=== PATIENT | female | born 1995 | race Caucasian/White ===

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

== ENCOUNTER 2020-06-08 11:32 | Emergency (ER) | payer OTHER ==
[~2020-06-08 11:32] MED LIST: HYDROCODON-ACE1 EAC4 PO; KETOROLAC TROME10 MG PO; REGLAN10 MG PO; ZOFRAN8 MG PO
[2020-06-08 12:21] LABS: BILIRUBIN NEGATIVE (NEGATIVE); BLOOD 2+ Ery/uL (NEGATIVE); COLOR YELLOW (YELLOW); GLUCOSE (U) NORMAL (NORMAL); LEUKOCYTES NEGATIVE Leu/uL (NEGATIVE); NITRITE NEGATIVE (NEGATIVE); PROTEIN NEGATIVE (NEGATIVE); SPECIFIC GRAVITY 1.025 (1.001-1.030); UROBILINOGEN 0.2 mg/dL (0.2-1.0); pH 7.5 (5.0-9.0)
[2020-06-08 12:30] LABS: BASOPHIL 0.5 % (0-2); EOSINOPHIL 2.6 % (0-5); HCT 39.4 % (37.0-47.0); HGB 12.9 g/dl (12.5-16.0); LYMPHOCYTE 28.3 % (15-48); MCH 29.6 pg (25.0-31.0); MCHC 32.7 g/dL (32.0-36.0); MCV 90.4 fL (78.0-100.0); MONOCYTE 5.9 % (0-12); MPV 8.2 fL (6.0-9.5); NEUTROPHIL 61.5 % (41-80); NRBC 0; PLT 352 K/uL (150-400); RBC 4.36 M/uL (4.20-5.40); RDW 14.1 % (11.5-14.0); WBC 8.4 K/uL (4.0-10.5)
[2020-06-08 12:31] LABS: CLARITY HAZY (CLEAR)
[2020-06-08 12:32] LABS: SQUAMOUS EPITHELIAL CELLS 20-50
[2020-06-08 12:33] LABS: BACTERIA 1+; URINARY RBC RARE
[2020-06-08 12:57] LABS: ALBUMIN 3.4 g/dL (3.4-5.0); BILIRUBIN - TOTAL 0.3 mg/dL (0.2-1.0); BUN/CREAT RATIO (CALC) 15.5 RATIO; CREATININE 0.71 mg/dL (0.51-0.95); GLOBULIN (CALCULATION) 3.8 g/dL; TOTAL PROTEIN 7.2 g/dL (6.4-8.2)
[2020-06-08] MEDS ORDERED: NAPROXEN500 MG PO (15:14)
[2020-06-08] MEDS ORDERED: NORCO 5-325 TA1 EACH PO (15:14)
== END 2020-06-08 15:27 | disposition home or self-care (01) ==
LOC: FER 11:32
PROVIDERS: Emergency Medicine
DX: N83.292 Other ovarian cyst, left side (principal)
CPT/HCPCS: 36415; 76830; 80053; 81001; 84702; 85025; 86850; 86900; 86901

== ENCOUNTER 2020-08-21 12:58 | Emergency (ER) | payer OTHER ==
[~2020-08-21 12:58] MED LIST changes: +NAPROXEN500 MG PO; +NORCO 5-325 TA1 EACH PO
[2020-08-21 13:32] LABS: BILIRUBIN NEGATIVE (NEGATIVE); BLOOD 1+ Ery/uL (NEGATIVE); CLARITY CLEAR (CLEAR); COLOR YELLOW (YELLOW); GLUCOSE (U) NORMAL (NORMAL); LEUKOCYTES NEGATIVE Leu/uL (NEGATIVE); NITRITE NEGATIVE (NEGATIVE); PROTEIN NEGATIVE (NEGATIVE); SPECIFIC GRAVITY >=1.030 (1.001-1.030); UROBILINOGEN 0.2 mg/dL (0.2-1.0); pH 5.5 (5.0-9.0)
[2020-08-21 13:44] LABS: BACTERIA TRACE; URINARY RBC RARE
[2020-08-21 13:56] LABS: BASOPHIL 0.4 % (0-2); EOSINOPHIL 1.4 % (0-5); HCT 42.6 % (37.0-47.0); HGB 14.2 g/dl (12.5-16.0); LYMPHOCYTE 13.6 % (15-48); MCHC 33.3 g/dL (32.0-36.0); MCV 89.9 fL (78.0-100.0); MONOCYTE 7.7 % (0-12); MPV 8.6 fL (6.0-9.5); NEUTROPHIL 76.4 % (41-80); NRBC 0; PLT 340 K/uL (150-400); RBC 4.74 M/uL (4.20-5.40); RDW 13.6 % (11.5-14.0); WBC 7.3 K/uL (4.0-10.5)
[2020-08-21 14:03] LABS: ALBUMIN 3.6 g/dL (3.4-5.0); BILIRUBIN - TOTAL 0.6 mg/dL (0.2-1.0); BUN/CREAT RATIO (CALC) 20.7 RATIO; CREATININE 0.82 mg/dL (0.51-0.95); GLOBULIN (CALCULATION) 4.5 g/dL; POTASSIUM 4.1 mmol/L (3.5-5.1); TOTAL PROTEIN 8.1 g/dL (6.4-8.2)
[2020-08-21] MEDS ORDERED: ZOFRAN4 M1 PO (15:22)
== END 2020-08-21 15:40 | disposition home or self-care (01) ==
LOC: FER 12:58
PROVIDERS: Emergency Medicine
DX: R19.7 Diarrhea, unspecified (principal); G43.909 Migraine, unspecified, not intractable, without status migrainosus; Z79.899 Other long term (current) drug therapy
CPT/HCPCS: 36415; 80053; 81001; 82150; 85025; J2405; J7030